=== PATIENT | male | born 1995 | race African-American/Black ===

== ENCOUNTER 2018-07-17 17:03 | Emergency (ER) | payer MEDICAID ==
[~2018-07-17] VITALS: Ht 177.8 cm; Wt 80.0 kg
[2018-07-17] MEDS ORDERED: ACETAMINOPHEN 325MG TABLET ONE (17:15)
[2018-07-17] MEDS ORDERED: DEXAMETHASONE 10 MG/ML VIAL IM ONE (18:45)
[2018-07-17] MEDS ORDERED: KETOROLAC 15MG/ML VIAL IM ONE (18:45)
[2018-07-17 19:21] VITALS: BP 121/81
== END 2018-07-17 19:58 | disposition home or self-care (01) ==
LOC: ER 17:19
DX: R07.0 Pain in throat (principal); R50.9 Fever, unspecified; R51 Headache; M79.10 Myalgia, unspecified site
CPT/HCPCS: 87070; 87430; 87804; 96372; 99283; J1100; J1885